=== PATIENT | male | born 1975 | race African-American/Black ===

== ENCOUNTER 2017-04-05 17:04 | Emergency (ER) | payer OTHER ==
[~2017-04-05] VITALS: Ht 185.4 cm; Wt 86.2 kg
[2017-04-05 17:04] VITALS: BP 139/92
[2017-04-05 17:41] LABS: APPEARANCE,URINE Clear (CLEAR); BILIRUBIN,URINE SMALL (NEGATIVE); BLOOD, URINE Small Ery/uL (NEGATIVE); COLOR,URINE Dark (YELLOW); KETONES,URINE Trace (NEGATIVE); LEUKOCYTE ESTERASE ,URINE Negative (NEGATIVE); NITRITE, URINE Negative (NEGATIVE); PH,URINE 5.5 (5.0-8.0); PROTEIN,URINE 30 mg/dl (NEGATIVE); UGLUCOSE Negative (NEGATIVE); UROBILINOGEN,URINE 0.2 EU/dL (0.2)
[2017-04-05 18:11] LABS: BACTERIA,URINE None seen /HPF (None Seen); MUCUS,URINE Many /LPF (None Seen); SQUAMOUS EPITHELIAL CELL,UR None Seen /HPF (None Seen); WBC,URINE NONE SEEN /HPF (0-3)
== END 2017-04-05 18:46 | disposition home or self-care (01) ==
LOC: ER 17:06
DX: N48.89 Other specified disorders of penis (principal); F41.9 Anxiety disorder, unspecified; F20.9 Schizophrenia, unspecified; F43.10 Post-traumatic stress disorder, unspecified
CPT/HCPCS: 81001; 99283; A4606; Z7610; 81000-TC

== ENCOUNTER 2017-04-06 16:13 | Emergency (ER) | payer OTHER ==
[~2017-04-06] VITALS: Ht 177.8 cm; Wt 81.6 kg
--- NOTE | 2017-04-06 16:38 | NUR ---
PATIENT SENT FROM [facility] FOR PSYCH ADMISSION. PATIENT DENIES SI AND HI. VSS
--- NOTE | 2017-04-06 16:51 | NUR ---
MD GOLD AT BEDSIDE
[2017-04-06 17:58] VITALS: BP 130/80
--- NOTE | 2017-04-06 17:59 | NUR ---
Patient discharged to home in stable condition. Written and verbal after care instructions given. Patient verbalizes understanding of instruction.
== END 2017-04-06 18:00 | disposition home or self-care (01) ==
LOC: ER 16:19
DX: Z00.8 Encounter for other general examination (principal); F20.9 Schizophrenia, unspecified; F43.10 Post-traumatic stress disorder, unspecified; R45.851 Suicidal ideations; F41.9 Anxiety disorder, unspecified
CPT/HCPCS: 99283; A4606; Z7610; Z7502

== ENCOUNTER 2017-06-12 12:25 | Emergency (ER) | payer OTHER ==
[~2017-06-12] VITALS: Ht 185.4 cm; Wt 90.7 kg
[2017-06-12 12:25] VITALS: BP 128/78
--- NOTE | 2017-06-12 13:31 | NUR ---
PT TO [facility]
== END 2017-06-12 14:56 | disposition home or self-care (01) ==
LOC: ER 12:30
DX: R51 Headache (principal); F20.9 Schizophrenia, unspecified; F43.10 Post-traumatic stress disorder, unspecified
CPT/HCPCS: 70450; 99284; A4606; Z7610

== ENCOUNTER 2017-10-05 12:44 | Emergency (ER) | payer OTHER ==
[~2017-10-05] VITALS: Ht 185.4 cm; Wt 88.5 kg
[2017-10-05 13:09] VITALS: BP 121/75
--- NOTE | 2017-10-05 14:34 | NUR ---
Patient discharged to home in stable condition. PT refused written after care instructions and prescriptions. Pt left without signing DC paperwork. made aware.
== END 2017-10-05 14:42 | disposition home or self-care (01) ==
LOC: ER 12:46
DX: L30.1 Dyshidrosis [pompholyx] (principal); H00.11 Chalazion right upper eyelid; F20.9 Schizophrenia, unspecified; F43.10 Post-traumatic stress disorder, unspecified; Z59.0 Homelessness
CPT/HCPCS: A4606; Z7610